=== PATIENT | male | born 1935 | race Hispanic/Latino ===

== ENCOUNTER 2017-01-20 08:26 | Day surgery (SDC) | payer MEDICARE, BC ==
[2017-01-12 08:53] VITALS: BMI 23.0
[2017-01-20] MEDS ORDERED: Propofol 10 mg/ml Inj (20 ML) ONE (09:23)
[2017-01-20] MEDS ORDERED: ePHEDrine 50 mg/ml Inj ONE (09:25)
[2017-01-20] MEDS ORDERED: Phenylephrine 10 mg/ml Inj ONE (09:25)
[2017-01-20] MEDS ORDERED: Esmolol 100 mg/10ml Inj IV ONE (09:34)
[2017-01-20] MEDS ORDERED: Sodium Chloride 0.9% 1,000 ML IV SCH (10:15)
[2017-01-20 10:18] VITALS: RESP 16
[2017-01-20 10:47] VITALS: BP 181/76; PULSE 98; TEMP 97.5; O2SAT 97
== END 2017-01-20 11:18 | disposition home or self-care (01) ==
LOC: ENDO 08:26
PROVIDERS: ATTEND Internal Medicine Gastroenterology
DX: R13.10 Dysphagia, unspecified (principal); K31.7 Polyp of stomach and duodenum; K29.50 Unspecified chronic gastritis without bleeding; K22.8 Other specified diseases of esophagus
CPT/HCPCS: 43239; 88305; 88342; J2001; J2370; J2704; J3010; J7040